=== PATIENT | female | born 1965 | race Caucasian/White ===

== ENCOUNTER 2023-12-18 20:22 | Emergency (ER) | payer BC ==
[2023-12-18 21:03] VITALS: BMI 20.9
[2023-12-18] MEDS ORDERED: NALOXONE HCL 0.4 MG/ML VIAL ONE (21:15)
[2023-12-18] MEDS: NALOXONE HCL 0.4 MG/ML VIAL IVPUSH ONE (21:19)
[2023-12-18] MEDS: SODIUM CHLORIDE 1,000 ML IV STA (21:20)
[2023-12-18 23:12] LABS: BASO % 0.6 % (0-2.0); EOS % 3.3 % (0-4.5); HEMATOCRIT 44.1 % (32.4-45.2); HEMOGLOBIN 14.7 GM/dL (10.7-15.3); LYMPH % 13.9 % (8-40); MCH 29.6 pg (25.7-33.7); MCHC 33.4 g/dl (32.0-36.0); MEAN CELL VOLUME 88.6 fl (80-96); MEAN PLT VOLUME 7.9 fl (7.5-11.1); MONO % 4.8 % (3.8-10.2); NEUT % 77.4 % (42.8-82.8); PLATELET COUNT 464 10^3/uL (134-434); RBC 4.98 M/mm3 (3.60-5.2); WHITE BLOOD COUNT 14.2 K/mm3 (4.0-10.0)
[2023-12-18 23:20] LABS: INR 1.02 (0.83-1.09); PROTHROMBIN TIME (PATIENT) 11.8 SEC (9.7-13.0)
[2023-12-18 23:25] LABS: ACTIVATED PTT 42.3 SECONDS (25.2-36.5)
[2023-12-18 23:27] LABS: POTASSIUM 4.9 mmol/L (3.5-5.1)
[2023-12-18 23:29] LABS: CALCIUM 9.1 mg/dL (8.5-10.1)
[2023-12-18 23:30] LABS: ALBUMIN 3.3 g/dl (3.4-5.0); BLOOD UREA NITROGEN 19.1 mg/dL (7-18)
[2023-12-18 23:33] LABS: CREATININE 0.6 mg/dL (0.55-1.3)
[2023-12-18 23:34] LABS: TOT PROT 7.4 g/dl (6.4-8.2)
[2023-12-18 23:35] LABS: BILIRUBIN,TOTAL 0.1 mg/dL (0.2-1)
[2023-12-19] MEDS ORDERED: AMPICILLIN NA/SULBACTAM NA 3 GM/100 ML BAG IVPB ONE (00:11)
[2023-12-19] MEDS ORDERED: ACETAMINOPHEN INJECTION 100 ML IVPB ONE (00:47)
[2023-12-19] MEDS: AMPICILLIN NA/SULBACTAM NA 3 GM in DEXTROSE 5%-WATER 100 ML IVPB ONE (00:53)
[2023-12-19] MEDS: ACETAMINOPHEN 1000 MG/100 ML BAG IVPB ONE (00:53)
[2023-12-19 11:10] VITALS: BP 125/80; PULSE 105; RESP 20; TEMP 98.6
== END 2023-12-19 11:55 | disposition home or self-care (01) ==
LOC: JER 20:22 → JERBED 12-19 05:28 → UNDOADMOB 12-19 05:28 → JER 12-19 11:55
PROC: 3E033GC Introduction of Other Therapeutic Substance into Peripheral Vein, Percutaneous Approach (ICD-10-PCS; 2023-12-18)
PROC: 3E0337Z Introduction of Electrolytic and Water Balance Substance into Peripheral Vein, Percutaneous Approach (ICD-10-PCS; 2023-12-18)
PROC: 3E03329 Introduction of Other Anti-infective into Peripheral Vein, Percutaneous Approach (ICD-10-PCS; principal; 2023-12-19)
PROC: 3E033NZ Introduction of Analgesics, Hypnotics, Sedatives into Peripheral Vein, Percutaneous Approach (ICD-10-PCS; 2023-12-19)
DX: R46.4 Slowness and poor responsiveness (principal); R41.82 Altered mental status, unspecified; Z20.822 Contact with and (suspected) exposure to COVID-19
CPT/HCPCS: 0241U-QW; 36415; 70450-TC; 71045-TC-FY; 71250-TC; 80053; 80307; 84484; 85025; 85610; 85730; 93005; 93010; 99291; J0131

== ENCOUNTER 2024-05-01 20:04 | Inpatient (IN) | payer BC ==
[2024-05-01] MEDS ORDERED: NOREPINEPHRINE BITARTRATE 4 MG/4 ML ML IV ONE (20:25)
[2024-05-01] MEDS ORDERED: NOREPINEPHRINE 0.9 % NACL 8 MG/250 ML BAG IVPB ONE (20:25)
[2024-05-01] MEDS: NOREPINEPHRINE BITARTRATE 8,000 MCG in DEXTROSE 5%-WATER - 492 ML IV SCH (20:40)
[2024-05-01 20:52] LABS: VENOUS BASE EXCESS -20.9 mmol/L (-2-2); VENOUS O2 SATURATION 94.6 % (70-80); VENOUS PCO2 64.7 mmHg (38-52)
[2024-05-01 20:55] LABS: VENOUS PH 6.898 (7.310-7.410)
[2024-05-01 20:56] LABS: HEMATOCRIT 35.7 % (32.4-45.2); HEMOGLOBIN 11.5 GM/dL (10.7-15.3); MCH 29.8 pg (25.7-33.7); MCHC 32.2 g/dl (32.0-36.0); MEAN CELL VOLUME 92.5 fl (80-96); PLATELET COUNT 243 10^3/uL (134-434); RBC 3.86 M/mm3 (3.60-5.2); WHITE BLOOD COUNT 11.9 K/mm3 (4.0-10.0)
[2024-05-01 21:05] LABS: INR 1.22 (0.83-1.09); PROTHROMBIN TIME (PATIENT) 13.7 SEC (9.7-13.0)
[2024-05-01 21:07] LABS: ACTIVATED PTT 43.7 SECONDS (25.2-36.5)
[2024-05-01 21:09] LABS: EPI CELLS 23 /uL (0-25.1); HYALINE CASTS 8 /uL (0-3.1); URINE APPEARANCE CLEAR; URINE BACTERIA 93 /uL (0-1359); URINE BILIRUBIN NEGATIVE (NEGATIVE); URINE COLOR YELLOW; URINE GLUCOSE (UA) TRACE (NEGATIVE); URINE KETONE NEGATIVE (NEGATIVE); URINE LEUK ESTERASE NEGATIVE (NEGATIVE); URINE NITRITE NEGATIVE (NEGATIVE); URINE PROTEIN 2+ (NEGATIVE); URINE RBC 56 /uL (0-23.9); URINE WBC 39 /uL (0-25.8)
[2024-05-01 21:14] LABS: POTASSIUM 3.9 mmol/L (3.5-5.1)
[2024-05-01 21:16] LABS: ALBUMIN 2.6 g/dl (3.4-5.0); BLOOD UREA NITROGEN 21.8 mg/dL (7-18); CALCIUM 7.2 mg/dL (8.5-10.1); MAGNESIUM 2.6 mg/dL (1.8-2.4)
[2024-05-01] MEDS ORDERED: HYDROCORTISONE SOD SUCCINATE 100 MG/2 ML VIAL ONE (21:19)
[2024-05-01 21:21] LABS: BILIRUBIN,TOTAL 0.5 mg/dL (0.2-1); CREATININE 1.3 mg/dL (0.55-1.3); TOT PROT 5.1 g/dl (6.4-8.2)
[2024-05-01 21:23] LABS: LACTIC ACID 10.9 mmol/L (0.4-2.0)
[2024-05-01] MEDS: HYDROCORTISONE SOD SUCCINATE 100 MG/2 ML VIAL IVPUSH ONE (21:33)
[2024-05-01 21:53] LABS: OPIATES, URI NEGATIVE (NEGATIVE); URINE BARBITURATES NEGATIVE (NEGATIVE)
[2024-05-01 21:54] LABS: COCAINE, UR POSITIVE (NEGATIVE); METHADONE, UR NEGATIVE (NEGATIVE); PHENCYCLIDINE,URINE NEGATIVE (NEGATIVE); URINE BENZODIAZEPINES NEGATIVE (NEGATIVE)
[2024-05-01 21:55] LABS: URINE AMPHETAMINES NEGATIVE (NEGATIVE)
[2024-05-01 22:33] LABS: ANISOCYTOSIS 0; MACROCYTOSIS 0
[2024-05-02] MEDS: hydrALAZINE HCL 20 MG/ML VIAL IVPUSH ONE (00:08)
[2024-05-02] MEDS: LACTATED RINGERS SOLUTION 1,000 ML/1,000 ML INFUS.BAG IV SCH ×2 (00:41→16:57)
[2024-05-02] MEDS: PANTOPRAZOLE SODIUM 40 MG VIAL IVPUSH SCH (00:43)
[2024-05-02] MEDS: MUPIROCIN 2% TOPICAL OINTMENT FOR DECOLONIZATION NS SCH (00:44)
[2024-05-02 01:02] LABS: EPI CELLS 31 /uL (0-25.1); HYALINE CASTS 2 /uL (0-3.1); URINE APPEARANCE CLEAR; URINE BACTERIA 44 /uL (0-1359); URINE BILIRUBIN NEGATIVE (NEGATIVE); URINE COLOR YELLOW; URINE GLUCOSE (UA) NEGATIVE (NEGATIVE); URINE KETONE 1+ (NEGATIVE); URINE LEUK ESTERASE NEGATIVE (NEGATIVE); URINE NITRITE NEGATIVE (NEGATIVE); URINE PROTEIN 2+ (NEGATIVE); URINE RBC 29 /uL (0-23.9); URINE UROBILINOGEN 0.2 mg/dL (0.2-1.0); URINE WBC 52 /uL (0-25.8)
[2024-05-02 01:04] LABS: HEMATOCRIT 46.2 % (32.4-45.2); HEMOGLOBIN 15.2 GM/dL (10.7-15.3); MCH 29.4 pg (25.7-33.7); MCHC 32.8 g/dl (32.0-36.0); MEAN CELL VOLUME 89.4 fl (80-96); MEAN PLT VOLUME 8.9 fl (7.5-11.1); PLATELET COUNT 314 10^3/uL (134-434); RBC 5.17 M/mm3 (3.60-5.2); RDW 13.3 % (11.6-15.6)
[2024-05-02 01:07] LABS: VENOUS BASE EXCESS -12.6 mmol/L (-2-2); VENOUS O2 SATURATION 91.9 % (70-80); VENOUS PCO2 31.1 mmHg (38-52); VENOUS PH 7.246 (7.310-7.410)
[2024-05-02 01:19] LABS: POTASSIUM 3.6 mmol/L (3.5-5.1)
[2024-05-02 01:22] LABS: BLOOD UREA NITROGEN 23.8 mg/dL (7-18); MAGNESIUM 2.1 mg/dL (1.8-2.4)
[2024-05-02 01:25] LABS: CREATININE 1.1 mg/dL (0.55-1.3)
[2024-05-02 01:27] LABS: PHOSPHOROUS 6.6 mg/dL (2.5-4.9)
[2024-05-02 01:28] LABS: BILIRUBIN,TOTAL 0.8 mg/dL (0.2-1)
[2024-05-02 01:28] LABS: N-TERMINAL BNP 34.1 pg/ml (5-125)
[2024-05-02 01:40] LABS: LACTIC ACID 6.4 mmol/L (0.4-2.0)
[2024-05-02 01:42] LABS: ALBUMIN 4.4 g/dl (3.4-5.0); CALCIUM 8.5 mg/dL (8.5-10.1)
[2024-05-02] MEDS: VANCOMYCIN/WATER FOR INJ (PEG) 1,000 MG/200 ML BAG IVPB SCH (02:30)
[2024-05-02] MEDS: PIPERACILLIN/TAZOB 4.5 GM 4.5 GM in DEXTROSE 5%-WATER 100 ML IVPB SCH (02:47)
[2024-05-02 02:49] LABS: CREATININE, URINE RANDOM < 13.0 mg/dL (30-150)
[2024-05-02 03:02] LABS: INR 1.06 (0.83-1.09)
[2024-05-02 03:05] LABS: ACTIVATED PTT 36.1 SECONDS (25.2-36.5)
[2024-05-02 03:11] LABS: ANISOCYTOSIS 0; MACROCYTOSIS 0
[2024-05-02 06:05] LABS: ARTERIAL BLD GAS O2 SATURATION 99.6 % (95-98); ARTERIAL BLOOD GAS PO2 318.3 mmHg (80-100); ARTERIAL BLOOD GAS pH 7.249 (7.350-7.450)
[2024-05-02 06:13] LABS: VENT MODE AC; VENT RATE 15
[2024-05-02] MEDS: HYDROCORTISONE SOD SUCCINATE 100 MG/2 ML VIAL IVPUSH SCH (08:05)
[2024-05-02 08:09] LABS: INR 1.18 (0.83-1.09); PROTHROMBIN TIME (PATIENT) 13.3 SEC (9.7-13.0)
[2024-05-02 08:12] LABS: ACTIVATED PTT 32.7 SECONDS (25.2-36.5)
[2024-05-02 08:23] LABS: N-TERMINAL BNP 819.5 pg/ml (5-125)
[2024-05-02 08:28] LABS: HEMOGLOBIN 14.7 GM/dL (10.7-15.3); MCH 29.4 pg (25.7-33.7); MCHC 32.6 g/dl (32.0-36.0); MEAN CELL VOLUME 90.2 fl (80-96); PLATELET COUNT 366 10^3/uL (134-434); RBC 4.99 M/mm3 (3.60-5.2); RDW 13.2 % (11.6-15.6); WHITE BLOOD COUNT 26.9 K/mm3 (4.0-10.0)
[2024-05-02 08:49] LABS: LACTIC ACID 5.9 mmol/L (0.4-2.0)
[2024-05-02] MEDS: HEPARIN NA (PORCINE) 5,000 UNITS/ML 1ML VIAL SQ SCH (09:08)
[2024-05-02 09:50] LABS: ANISOCYTOSIS 0; MACROCYTOSIS 0
[2024-05-02] MEDS: MIDAZOLAM IN 0.9 % SOD.CHLORID 100 MG/100 ML PLAST..BAG IVPB SCH (10:56)
[2024-05-02] MEDS: hydrALAZINE HCL 20 MG/ML VIAL IM PRN (13:01)
[2024-05-02] MEDS ORDERED: hydrALAZINE HCL 20 MG/ML VIAL IVPUSH PRN (13:08)
[2024-05-02 13:38] LABS: LACTIC ACID 3.3 mmol/L (0.4-2.0)
[2024-05-02] MEDS: CHLORHEXIDINE GLUCONATE 4% CLEANSER FOR DECOLONIZATION TP SCH (21:09)
[2024-05-03 06:26] LABS: ARTERIAL BLD GAS O2 SATURATION 95.1 % (95-98); ARTERIAL BLOOD GAS BASE EXCESS -7.5 mmol/L (-2-2); ARTERIAL BLOOD GAS PO2 81.6 mmHg (80-100); ARTERIAL BLOOD GAS pH 7.304 (7.350-7.450)
[2024-05-03 06:29] LABS: VENT MODE V-A/C; VENT RATE 15
[2024-05-03 07:29] LABS: HEMOGLOBIN 14.6 GM/dL (10.7-15.3); MCH 30.4 pg (25.7-33.7); MCHC 33.9 g/dl (32.0-36.0); MEAN CELL VOLUME 89.7 fl (80-96); MEAN PLT VOLUME 8.6 fl (7.5-11.1); PLATELET COUNT 294 10^3/uL (134-434); RBC 4.79 M/mm3 (3.60-5.2); RDW 13.7 % (11.6-15.6)
[2024-05-03 07:31] LABS: INR 1.05 (0.83-1.09); PROTHROMBIN TIME (PATIENT) 12.1 SEC (9.7-13.0)
[2024-05-03 07:35] LABS: WHITE BLOOD COUNT 37.7 K/mm3 (4.0-10.0)
[2024-05-03 07:55] LABS: ALBUMIN 3.6 g/dl (3.4-5.0); CALCIUM 9.2 mg/dL (8.5-10.1)
[2024-05-03 07:56] LABS: BLOOD UREA NITROGEN 26.5 mg/dL (7-18)
[2024-05-03 07:59] LABS: CREATININE 0.6 mg/dL (0.55-1.3); PHOSPHOROUS 4.3 mg/dL (2.5-4.9)
[2024-05-03 08:00] LABS: BILIRUBIN,TOTAL 0.5 mg/dL (0.2-1); TOT PROT 6.8 g/dl (6.4-8.2)
[2024-05-03] MEDS ORDERED: VANCOMYCIN 1,000 MG in DEXTROSE 5%-WATER - 250 ML IVPB ONE (09:15)
[2024-05-03] MEDS ORDERED: AMPICILLIN NA/SULBACTAM NA 3 GM in SODIUM CHLORIDE 100 ML IVPB SCH ×2 (11:12→18:00)
[2024-05-03] MEDS: POTASSIUM CHLORIDE ORAL LIQUID 20 MEQ/15 ML PO ONE (11:29)
[2024-05-03] MEDS: AMPICILLIN NA/SULBACTAM NA 3 GM in SODIUM CHLORIDE 100 ML IVPB SCH (12:06)
[2024-05-03] MEDS: OCULAR LUBRICANT OPHTHALMIC OINTMENT 7 GM TUBE OU PRN (12:07)
[2024-05-03] MEDS: ACETAMINOPHEN 650 MG/20.3 ML ORAL SOLUTION (CUPS) PO PRN (16:22)
[2024-05-03] MEDS: PIPERACILLIN/TAZOB 4.5 GM 4.5 GM in DEXTROSE 5%-WATER 100 ML IVPB SCH ×2 (18:01→18:03)
[2024-05-03] MEDS: VANCOMYCIN/WATER FOR INJ (PEG) 1,000 MG/200 ML BAG IVPB ONE (18:02)
[2024-05-03] MEDS: VANCOMYCIN 1,000 MG in DEXTROSE 5%-WATER - 250 ML IVPB SCH (18:03)
[2024-05-04 08:05] LABS: HEMATOCRIT 42.1 % (32.4-45.2); HEMOGLOBIN 13.6 GM/dL (10.7-15.3); MCHC 32.2 g/dl (32.0-36.0); PLATELET COUNT 260 10^3/uL (134-434); RBC 4.68 M/mm3 (3.60-5.2); RDW 13.6 % (11.6-15.6); WHITE BLOOD COUNT 27.4 K/mm3 (4.0-10.0)
[2024-05-04 08:18] LABS: POTASSIUM 3.9 mmol/L (3.5-5.1)
[2024-05-04 08:29] LABS: ALBUMIN 3.1 g/dl (3.4-5.0); BLOOD UREA NITROGEN 27.2 mg/dL (7-18); CALCIUM 8.8 mg/dL (8.5-10.1); MAGNESIUM 2.2 mg/dL (1.8-2.4)
[2024-05-04 08:32] LABS: CREATININE 0.6 mg/dL (0.55-1.3); PHOSPHOROUS 2.5 mg/dL (2.5-4.9)
[2024-05-04 08:33] LABS: BILIRUBIN,TOTAL 0.5 mg/dL (0.2-1); TOT PROT 6.2 g/dl (6.4-8.2)
[2024-05-04] MEDS: PANTOPRAZOLE SODIUM 40 MG VIAL IVPUSH SCH (10:08)
[2024-05-04] MEDS: DEXTROSE 5%-WATER - 1,000 ML IV SCH (14:05)
[2024-05-04] MEDS: LACTATED RINGERS SOLUTION 1000 ML INFUS.BAG IV ONE ×2 (16:32→18:32)
[2024-05-04] MEDS ORDERED: NOREPINEPHRINE BITARTRATE 4 MG/4 ML ML IV ONE (17:18)
[2024-05-04] MEDS: NOREPINEPHRINE BITARTRATE 4,000 MCG in DEXTROSE 5%-WATER - 496 ML IV SCH (17:30)
[2024-05-04] MEDS: ERTAPENEM SODIUM 1 GM in SODIUM CHLORIDE 50 ML IVPB SCH (18:10)
[2024-05-04 20:31] LABS: POTASSIUM 3.3 mmol/L (3.5-5.1)
[2024-05-04 20:32] LABS: CALCIUM 8.9 mg/dL (8.5-10.1)
[2024-05-04 20:33] LABS: BLOOD UREA NITROGEN 23.2 mg/dL (7-18)
[2024-05-04 20:36] LABS: CREATININE 0.6 mg/dL (0.55-1.3)
[2024-05-04] MEDS: KCL 10 MEQ IVPB 10 MEQ/100 ML INFUS.BAG IVPB SCH (21:04)
[2024-05-05 07:35] LABS: HEMATOCRIT 37.7 % (32.4-45.2); HEMOGLOBIN 12.2 GM/dL (10.7-15.3); MCH 28.9 pg (25.7-33.7); MCHC 32.3 g/dl (32.0-36.0); MEAN CELL VOLUME 89.5 fl (80-96); MEAN PLT VOLUME 8.4 fl (7.5-11.1); PLATELET COUNT 270 10^3/uL (134-434); RBC 4.21 M/mm3 (3.60-5.2); RDW 13.6 % (11.6-15.6); WHITE BLOOD COUNT 22.8 K/mm3 (4.0-10.0)
[2024-05-05 07:39] LABS: POTASSIUM 3.7 mmol/L (3.5-5.1)
[2024-05-05 07:44] LABS: CALCIUM 9.1 mg/dL (8.5-10.1)
[2024-05-05 07:45] LABS: ALBUMIN 2.8 g/dl (3.4-5.0); MAGNESIUM 2.5 mg/dL (1.8-2.4)
[2024-05-05 07:48] LABS: CREATININE 0.5 mg/dL (0.55-1.3)
[2024-05-05 07:49] LABS: BILIRUBIN,TOTAL 0.8 mg/dL (0.2-1); TOT PROT 5.6 g/dl (6.4-8.2)
[2024-05-05 08:48] LABS: ANISOCYTOSIS 0; MACROCYTOSIS 0
[2024-05-05] MEDS ORDERED: RAPID SEQUENCE INTUBATION KIT NR ONE (12:55)
[2024-05-05 14:16] VITALS: BMI 21.6
[2024-05-05 18:44] LABS: URINE APPEARANCE CLEAR; URINE BILIRUBIN NEGATIVE (NEGATIVE); URINE COLOR YELLOW; URINE GLUCOSE (UA) NEGATIVE (NEGATIVE); URINE KETONE NEGATIVE (NEGATIVE); URINE LEUK ESTERASE NEGATIVE (NEGATIVE); URINE NITRITE NEGATIVE (NEGATIVE); URINE PROTEIN NEGATIVE (NEGATIVE); URINE UROBILINOGEN 0.2 mg/dL (0.2-1.0)
[2024-05-05 20:48] LABS: EPI CELLS FEW /uL (0-25.1); HYALINE CASTS NONE SEEN /uL (0-3.1); URINE BACTERIA OCCASIONAL /uL (0-1359)
[2024-05-05 20:49] LABS: URINE CRYSTALS FEW /hpf
[2024-05-05] MEDS: DEXTROSE 5%-WATER - 1,000 ML IV SCH (21:17)
[2024-05-05] MEDS: NOREPINEPHRINE BITARTRATE 4,000 MCG in DEXTROSE 5%-WATER - 496 ML IV SCH (21:18)
[2024-05-06 07:47] LABS: HEMATOCRIT 38.6 % (32.4-45.2); HEMOGLOBIN 12.4 GM/dL (10.7-15.3); MCH 29.2 pg (25.7-33.7); MCHC 32.1 g/dl (32.0-36.0); MEAN CELL VOLUME 91.1 fl (80-96); MEAN PLT VOLUME 8.8 fl (7.5-11.1); PLATELET COUNT 254 10^3/uL (134-434); RBC 4.23 M/mm3 (3.60-5.2); RDW 14.1 % (11.6-15.6); WHITE BLOOD COUNT 14.6 K/mm3 (4.0-10.0)
[2024-05-06 08:07] LABS: CHLORIDE 131 mmol/L (98-107); POTASSIUM 3.6 mmol/L (3.5-5.1)
[2024-05-06 08:15] LABS: ALBUMIN 2.7 g/dl (3.4-5.0); ANION GAP 2 mmol/L (4-13); BLOOD UREA NITROGEN 13.6 mg/dL (7-18); CALCIUM 9.2 mg/dL (8.5-10.1); CO2 31 mmol/L (21-32); GLUCOSE,RANDOM 140 mg/dL (74-106); MAGNESIUM 2.2 mg/dL (1.8-2.4); SODIUM 164 mmol/L (136-145)
[2024-05-06 08:19] LABS: CREATININE 0.6 mg/dL (0.55-1.3); PHOSPHOROUS 1.8 mg/dL (2.5-4.9); SGOT/AST 113 U/L (15-37)
[2024-05-06 08:20] LABS: BILIRUBIN,TOTAL 0.6 mg/dL (0.2-1); SGPT/ALT 570 U/L (13-61); TOT PROT 5.6 g/dl (6.4-8.2)
[2024-05-06 08:21] LABS: ALK PHOS 83 U/L (45-117)
[2024-05-06] MEDS: SODIUM CHLORIDE IVPB SCH (09:42)
[2024-05-06] MEDS: NAPH,MB-DB/K PH,MBDB POWDER PACKET GT ONE (09:42)
[2024-05-06] MEDS: DESMOPRESSIN ACETATE IVPB SCH (09:42)
[2024-05-06 13:47] LABS: CHLORIDE 130 mmol/L (98-107); POTASSIUM 3.8 mmol/L (3.5-5.1)
[2024-05-06 13:49] LABS: CALCIUM 9.1 mg/dL (8.5-10.1)
[2024-05-06 13:50] LABS: BLOOD UREA NITROGEN 16.9 mg/dL (7-18); CO2 31 mmol/L (21-32); GLUCOSE,RANDOM 122 mg/dL (74-106)
[2024-05-06 13:53] LABS: CREATININE 0.5 mg/dL (0.55-1.3)
[2024-05-06 13:58] LABS: ANION GAP 2 mmol/L (4-13); SODIUM 162 mmol/L (136-145)
[2024-05-06] MEDS: NOREPINEPHRINE BITARTRATE/D5W 8 MG/250 ML BAG IVPB SCH (14:48)
[2024-05-06] MEDS: DESMOPRESSIN ACETATE IVPB ONE (16:15)
[2024-05-06] MEDS: SODIUM CHLORIDE IVPB ONE (16:15)
[2024-05-06 16:48] LABS: POTASSIUM 3.4 mmol/L (3.5-5.1)
[2024-05-06 16:51] LABS: BLOOD UREA NITROGEN 18.9 mg/dL (7-18); CALCIUM 9.1 mg/dL (8.5-10.1)
[2024-05-06 16:55] LABS: CREATININE 0.6 mg/dL (0.55-1.3)
[2024-05-06] MEDS: POTASSIUM CHLORIDE ORAL LIQUID 20 MEQ/15 ML GT ONE (18:09)
[2024-05-07 01:12] LABS: CALCIUM 8.9 mg/dL (8.5-10.1)
[2024-05-07 01:16] LABS: CREATININE 0.5 mg/dL (0.55-1.3)
[2024-05-07 07:33] LABS: HEMATOCRIT 36.2 % (32.4-45.2); HEMOGLOBIN 11.7 GM/dL (10.7-15.3); MCH 29.7 pg (25.7-33.7); MCHC 32.5 g/dl (32.0-36.0); MEAN CELL VOLUME 91.4 fl (80-96); MEAN PLT VOLUME 8.7 fl (7.5-11.1); PLATELET COUNT 209 10^3/uL (134-434); RBC 3.96 M/mm3 (3.60-5.2); RDW 14.1 % (11.6-15.6); WHITE BLOOD COUNT 14.9 K/mm3 (4.0-10.0)
[2024-05-07 07:43] LABS: POTASSIUM 3.8 mmol/L (3.5-5.1)
[2024-05-07 07:51] LABS: BLOOD UREA NITROGEN 17.9 mg/dL (7-18); CALCIUM 8.4 mg/dL (8.5-10.1)
[2024-05-07 07:52] LABS: MAGNESIUM 1.7 mg/dL (1.8-2.4)
[2024-05-07 07:56] LABS: CREATININE 0.4 mg/dL (0.55-1.3); PHOSPHOROUS 3.5 mg/dL (2.5-4.9)
[2024-05-07] MEDS: MAGNESIUM SULFATE IN WATER 2 GM/50 ML IVPB IVPB ONE (09:20)
[2024-05-07 09:30] LABS: ARTERIAL BLD GAS O2 SATURATION 95.5 % (95-98); ARTERIAL BLOOD GAS BASE EXCESS 3.5 mmol/L (-2-2); ARTERIAL BLOOD GAS PO2 80.8 mmHg (80-100)
[2024-05-07 09:31] LABS: ALLENS TEST POSITIVE; VENT MODE A/C
[2024-05-07 09:32] LABS: VENT RATE 15
[2024-05-07 10:47] LABS: ARTERIAL BLD GAS O2 SATURATION 99.3 % (95-98); ARTERIAL BLOOD GAS BASE EXCESS 1.6 mmol/L (-2-2); ARTERIAL BLOOD GAS pH 7.232 (7.350-7.450)
[2024-05-07] MEDS: MAGNESIUM SULF 50% (8.12 MEQ/2 ML-1 GM VIAL) IVPB ONE (11:28)
[2024-05-07 15:38] LABS: ARTERIAL BLD GAS O2 SATURATION 99.5 % (95-98); ARTERIAL BLOOD GAS BASE EXCESS 2.8 mmol/L (-2-2); ARTERIAL BLOOD GAS PO2 238.3 mmHg (80-100); ARTERIAL BLOOD GAS pH 7.347 (7.350-7.450)
[2024-05-07 15:40] LABS: ALLENS TEST POSITIVE
[2024-05-08 07:11] LABS: HEMATOCRIT 36.6 % (32.4-45.2); HEMOGLOBIN 12.2 GM/dL (10.7-15.3); MCHC 33.3 g/dl (32.0-36.0); MEAN CELL VOLUME 90.3 fl (80-96); MEAN PLT VOLUME 8.9 fl (7.5-11.1); PLATELET COUNT 211 10^3/uL (134-434); RBC 4.06 M/mm3 (3.60-5.2); RDW 13.5 % (11.6-15.6)
[2024-05-08 07:27] LABS: POTASSIUM 3.5 mmol/L (3.5-5.1)
[2024-05-08 07:29] LABS: BLOOD UREA NITROGEN 10.9 mg/dL (7-18); CALCIUM 8.6 mg/dL (8.5-10.1); MAGNESIUM 2.1 mg/dL (1.8-2.4)
[2024-05-08 07:33] LABS: CREATININE 0.5 mg/dL (0.55-1.3); PHOSPHOROUS 5.4 mg/dL (2.5-4.9)
[2024-05-08] MEDS: DESMOPRESSIN ACETATE IVPB SCH (11:06)
[2024-05-08] MEDS: SODIUM CHLORIDE IVPB SCH (11:06)
[2024-05-08 12:47] LABS: POTASSIUM 3.4 mmol/L (3.5-5.1)
[2024-05-08 12:48] LABS: BLOOD UREA NITROGEN 10.3 mg/dL (7-18); CALCIUM 8.6 mg/dL (8.5-10.1)
[2024-05-08 12:52] LABS: CREATININE 0.5 mg/dL (0.55-1.3)
[2024-05-08] MEDS: SODIUM CHLORIDE 1,000 ML IV STA (14:04)
[2024-05-08] MEDS ORDERED: NOREPINEPHRINE BITARTRATE 4 MG/4 ML ML IV ONE (19:49)
[2024-05-09 08:20] LABS: HEMATOCRIT 34.6 % (32.4-45.2); HEMOGLOBIN 11.7 GM/dL (10.7-15.3); MCH 30.1 pg (25.7-33.7); MCHC 33.7 g/dl (32.0-36.0); MEAN CELL VOLUME 89.4 fl (80-96); MEAN PLT VOLUME 9.2 fl (7.5-11.1); PLATELET COUNT 216 10^3/uL (134-434); RBC 3.88 M/mm3 (3.60-5.2); RDW 13.7 % (11.6-15.6); WHITE BLOOD COUNT 16.2 K/mm3 (4.0-10.0)
[2024-05-09 08:35] LABS: POTASSIUM 3.9 mmol/L (3.5-5.1)
[2024-05-09 08:37] LABS: BLOOD UREA NITROGEN 11.8 mg/dL (7-18); CALCIUM 8.2 mg/dL (8.5-10.1)
[2024-05-09 08:40] LABS: MAGNESIUM 1.8 mg/dL (1.8-2.4); PHOSPHOROUS 4.4 mg/dL (2.5-4.9)
[2024-05-09 08:41] LABS: CREATININE 0.6 mg/dL (0.55-1.3)
[2024-05-10 07:10] LABS: POTASSIUM 4.3 mmol/L (3.5-5.1)
[2024-05-10 07:14] LABS: BLOOD UREA NITROGEN 13.9 mg/dL (7-18)
[2024-05-10 07:16] LABS: CALCIUM 8.7 mg/dL (8.5-10.1)
[2024-05-10 07:17] LABS: CREATININE 0.7 mg/dL (0.55-1.3); MAGNESIUM 1.6 mg/dL (1.8-2.4); PHOSPHOROUS 3.3 mg/dL (2.5-4.9)
[2024-05-10 08:05] LABS: HEMATOCRIT 34.9 % (32.4-45.2); HEMOGLOBIN 11.8 GM/dL (10.7-15.3); MCH 29.9 pg (25.7-33.7); MCHC 33.7 g/dl (32.0-36.0); MEAN CELL VOLUME 88.8 fl (80-96); MEAN PLT VOLUME 9.1 fl (7.5-11.1); PLATELET COUNT 236 10^3/uL (134-434); RBC 3.93 M/mm3 (3.60-5.2); RDW 13.2 % (11.6-15.6); WHITE BLOOD COUNT 15.6 K/mm3 (4.0-10.0)
[2024-05-10] MEDS ORDERED: NOREPINEPHRINE BITARTRATE 4 MG/4 ML ML IV ONE (13:42)
[2024-05-10] MEDS: SODIUM CHLORIDE 1,000 ML IV SCH (13:48)
[2024-05-10] MEDS: MAGNESIUM 2GM/50ML STERILE WATER IVPB IVPB ONE (14:14)
[2024-05-11 08:57] LABS: HEMATOCRIT 34.6 % (32.4-45.2); HEMOGLOBIN 11.6 GM/dL (10.7-15.3); MCH 29.6 pg (25.7-33.7); MCHC 33.5 g/dl (32.0-36.0); MEAN CELL VOLUME 88.5 fl (80-96); MEAN PLT VOLUME 8.9 fl (7.5-11.1); PLATELET COUNT 247 10^3/uL (134-434); RBC 3.91 M/mm3 (3.60-5.2); RDW 13.4 % (11.6-15.6); WHITE BLOOD COUNT 20.1 K/mm3 (4.0-10.0)
[2024-05-11 09:17] LABS: POTASSIUM 4.4 mmol/L (3.5-5.1)
[2024-05-11 09:18] LABS: POTASSIUM 4.3 mmol/L (3.5-5.1)
[2024-05-11 09:21] LABS: BLOOD UREA NITROGEN 11.3 mg/dL (7-18); CALCIUM 8.5 mg/dL (8.5-10.1); MAGNESIUM 1.7 mg/dL (1.8-2.4)
[2024-05-11 09:22] LABS: CALCIUM 8.6 mg/dL (8.5-10.1)
[2024-05-11 09:23] LABS: BLOOD UREA NITROGEN 11.5 mg/dL (7-18)
[2024-05-11 09:24] LABS: CREATININE 0.5 mg/dL (0.55-1.3); PHOSPHOROUS 4.1 mg/dL (2.5-4.9)
[2024-05-11 09:27] LABS: CREATININE 0.4 mg/dL (0.55-1.3)
[2024-05-11] MEDS: DEXTROSE 5%-NORMAL SALINE 1,000 ML IV SCH (13:02)
[2024-05-11] MEDS: MAGNESIUM OXIDE 400 MG TABLET (FP) PO ONE (13:02)
[2024-05-12 08:06] LABS: HEMATOCRIT 33.8 % (32.4-45.2); HEMOGLOBIN 11.4 GM/dL (10.7-15.3); MCH 29.9 pg (25.7-33.7); MCHC 33.9 g/dl (32.0-36.0); MEAN CELL VOLUME 88.1 fl (80-96); MEAN PLT VOLUME 9.3 fl (7.5-11.1); PLATELET COUNT 207 10^3/uL (134-434); RBC 3.83 M/mm3 (3.60-5.2); RDW 13.3 % (11.6-15.6)
[2024-05-12 08:10] LABS: WHITE BLOOD COUNT 22.3 K/mm3 (4.0-10.0)
[2024-05-12 08:21] LABS: POTASSIUM 4.3 mmol/L (3.5-5.1)
[2024-05-12 08:32] LABS: CALCIUM 8.2 mg/dL (8.5-10.1)
[2024-05-12 08:33] LABS: BLOOD UREA NITROGEN 11.8 mg/dL (7-18); MAGNESIUM 1.5 mg/dL (1.8-2.4)
[2024-05-12 08:35] LABS: CREATININE 0.4 mg/dL (0.55-1.3); PHOSPHOROUS 3.6 mg/dL (2.5-4.9)
[2024-05-12 08:37] LABS: BILIRUBIN,TOTAL 0.6 mg/dL (0.2-1)
[2024-05-12 08:42] LABS: ALBUMIN 1.4 g/dl (3.4-5.0)
[2024-05-12 09:45] LABS: ANISOCYTOSIS 1+; MACROCYTOSIS 0
[2024-05-12 09:46] LABS: PLATELET ESTIMATE ADEQUATE
[2024-05-12] MEDS: SODIUM CHLORIDE 1,000 ML IV SCH (15:00)
[2024-05-13 08:55] VITALS: TEMP 97
[2024-05-13 10:27] VITALS: RESP 15
[2024-05-13 13:15] VITALS: BP 68/50; PULSE 82
== END 2024-05-13 12:35 | disposition expired | DRG 207 ==
LOC: JER 20:04 → JERBED 21:20 → JICU 23:33
PROVIDERS: ADMIT Internal Medicine Pulmonary Disease; ATTEND Internal Medicine Pulmonary Disease
PROC: 5A1955Z Respiratory Ventilation, Greater than 96 Consecutive Hours (ICD-10-PCS; principal; 2024-05-01)
PROC: 0BH17EZ Insertion of Endotracheal Airway into Trachea, Via Natural or Artificial Opening (ICD-10-PCS; 2024-05-01)
PROC: 02HV33Z Insertion of Infusion Device into Superior Vena Cava, Percutaneous Approach (ICD-10-PCS; 2024-05-01)
DX: J96.01 Acute respiratory failure with hypoxia (principal); J69.0 Pneumonitis due to inhalation of food and vomit; K72.01 Acute and subacute hepatic failure with coma; R65.21 Severe sepsis with septic shock; A41.9 Sepsis, unspecified organism; G93.1 Anoxic brain damage, not elsewhere classified; E87.20 Acidosis, unspecified; Z99.11 Dependence on respirator [ventilator] status; E87.0 Hyperosmolality and hypernatremia; N17.9 Acute kidney failure, unspecified; E87.1 Hypo-osmolality and hyponatremia; R64 Cachexia; J96.02 Acute respiratory failure with hypercapnia; I46.9 Cardiac arrest, cause unspecified; F14.10 Cocaine abuse, uncomplicated; I10 Essential (primary) hypertension; I95.9 Hypotension, unspecified; E11.9 Type 2 diabetes mellitus without complications; F17.210 Nicotine dependence, cigarettes, uncomplicated; R74.01 Elevation of levels of liver transaminase levels; Z68.21 Body mass index [BMI] 21.0-21.9, adult; E03.9 Hypothyroidism, unspecified
CPT/HCPCS: 0241U-QW; 36415; 36600; 70450-TC; 71045-TC-FY; 80048; 80053; 80307; 81003; 82024; 82150; 82308; 82533; 82550; 82553; 82570; 82803; 82962; 83036; 83605; 83615; 83690; 83735; 83880; 83930; 83935; 84100; 84300; 84436; 84439; 84443; 84484; 85025; 85027; 85610; 85730; 86140; 86850; 86900; 86901; 87040; 87070; 87081; 87086; 87205; 87899; 93005; 93010; 93306-TC; 94002; 99291; J1644; J2597